=== PATIENT | male | born 1945 | race Caucasian/White ===

== ENCOUNTER 2021-08-11 17:51 | Inpatient (IN) | payer MEDICARE, BC ==
[2021-08-11 18:08] LABS: Absolute Neutrophil Ct (ANC) 2.24 (1.4-6.9); BASOPHIL % 0.3 % (0.0-0.4); Basophil (Absolute #) 0.01 (0-0.4); Eosinophil % 6.5 % (0.00-5.0); Eosinophil (Absolute #) 0.21 (0-0.5); Hematocrit 27.8 % (42-50); Hemoglobin 9.2 gm/dl (12.5-18.0); Lymphocyte (Absolute #) 0.36 (1.0-4.6); Lymphocytes % 11.1 % (24.0-44.0); Mean Cell Volume 83.7 fl (78-100); Mean Corpuscular Hemoglobin 27.7 pg (26-32); Mean Corpuscular Hgb Concent. 33.1 g/dl (32-36); Mean Platelet Volume 9.5 fl (7.5-11.0); Monocyte (Absolute #) 0.43 (0.0-1.3); Monocytes % 13.2 % (0.0-12.0); Neutrophil % 68.9 % (36.0-66.0); Platelet Count 122 K/mm3 (150-450); Red Blood Count 3.32 M/mm3 (4.1-5.6); Red Cell Distribution Width 15.9 % (11.5-14.0); White Blood Count 3.3 K/mm3 (4.0-10.5)
[2021-08-11 18:20] LABS: ALBUMIN 3.5 g/dL (3.5-5.0); ALKALINE PHOSPHATASE 157 U/L (38-126); ANION GAP 12.5 MEQ/L (5-15); BLOOD UREA NITROGEN 13 mg/dL (9-20); CHLORIDE 84 mmol/L (98-107); Calcium 8.9 mg/dL (8.4-10.2); Carbon Dioxide 23 mmol/L (22-30); Creatinine 1 0.47 mg/dL (0.66-1.25); EST GLOMERULAR FILTRATION RATE > 60.0 ML/MIN; Glucose 109 mg/dL (74-106); Potassium 4.6 mmol/L (3.5-5.1); SGOT/AST 29 U/L (17-59); SGPT/ALT 22 U/L (0-50); Total Protein 6.8 g/dL (6.3-8.2)
--- NOTE | 2021-08-11 18:31 | ERPHSYRPT ---
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 Per patient/ he has been having increased weakness fatigue and tiredness, decreased oral intake and decreased level of activity from his usual for 1 week. No fever or chills reported. Patient is chronically hypothermic with temperature normally around 95 and today was 92. Patient also has a left tib-fib surgery almost a month ago and currently on vancomycin infusion through PICC line. Also has left anterior knee superficial skin tear. Not a good historian and history is limited. Timing/Duration: week(s), constant, gradual onset, worse Severity: moderate Modifying Factors: Improves With: nothing Associated Symptoms: loss of appetite, malaise, weakness, No vomiting, No abdominal pain, No shortness of breath, No cough, No chills, No chest pain, No fever, No syncope Allergies/Adverse Reactions: codeine Allergy (Verified 08/11/21 18:21) Home Medications: Amlodipine Besylate 5 mg [Norvasc 5 mg] 5 mg PO DAILY 08/11/21 [History] Atorvastatin Calcium [Lipitor] 10 mg PO DAILY 08/11/21 [History] Baclofen 40 mg PO QID 08/11/21 [History] Nicotine Polacrilex [Nicotine Lozenge] 4 mg BC UD 08/11/21 [History] Omeprazole 20 mg PO DAILY 08/11/21 [History] Warfarin Sodium 1 mg [Coumadin 1 MG] 2.5 mg PO DAILY 08/11/21 [History] Travel Risk - International Travel Have you traveled outside of the country in past 3 weeks: No - Coronavirus Screening Are you exhibiting any of the following symptoms?: No Close contact with a COVID-19 positive Pt in past 14-21 Days: No - Vaccine Status Have you recieved a Covid-19 vaccination: Yes Network Analyst: Moderna - Vaccination Dates Date of 2cond Vaccination (if applicable): 01/2021 - Review of Systems Constitutional: Fatigue, Weakness Eyes: No Symptoms Ears, Nose, & Throat: No Symptoms Respiratory: No Symptoms Cardiac: No Symptoms Abdominal/Gastrointestinal: No Symptoms Genitourinary Symptoms: No Symptoms Musculoskeletal: Arthralgias, Deformity, Injury, Joint Redness, Joint Pain Skin: Skin Lesions Neurological: Paralysis, Parasthesia, Sensory Changes Psychological: No Symptoms Hematologic/Lymphatic: No Symptoms Immunological/Allergic: No Symptoms - Past Medical History Pertinent Past Medical History: Yes Cardiac History: High Cholesterol, Hypertension Musculoskeletal History: Fractures GI Medical History: GERD - Past Surgical History Past Surgical History: Yes Musculoskeletal: Orthopedic Surgery Other Surgical History: parapalegic - Social History Smoking Status: Never smoker Exposure to second hand smoke: No Drug Use: none Patient Lives Alone: No - Nursing Vital Signs Nursing Vital Signs: Initial Vital Signs Pulse Rate 55 L 08/11/21 17:53 Blood Pressure 131/66 08/11/21 17:53 O2 Sat by Pulse Oximetry 98 08/11/21 17:53 Pain Scale Pain Intensity 0 - Physical Exam General Appearance: no apparent distress, alert Eye Exam: PERRL/EOMI, eyes nml inspection Ears, Nose, Throat Exam: normal ENT inspection, TMs normal, pharynx normal Neck Exam: normal inspection, non-tender, supple Respiratory Exam: diminished breath sounds, rhonchi, wheezing Cardiovascular Exam: normal heart sounds, bradycardia Gastrointestinal/Abdomen Exam: soft, normal bowel sounds, No tenderness Back Exam: rash, other (Multiple skin rashes/wounds/pressure ulcers.) Extremity Exam: pelvis stable, swelling (Bilateral lower extremity swelling. Skin lesion left carpio and knee. 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 nml as tested, normal mood/affect Skin Exam: rash SpO2 Interpretation: normal SpO2: 98 O2 Delivery: Room Air Ordered Tests: Active Orders 24 hr Category Date Time Status Linux Systems Administrator STAT Care 08/11/21 18:09 Active EKG-ER Only STAT Care 08/11/21 18:09 Active IV Insertion STAT Care 08/11/21 18:09 Active CHEST 1 VIEW (PORTABLE) Stat Exams 08/11/21 18:11 Taken BLOOD CULTURE Stat Lab 08/11/21 17:50 Received BMP Stat Lab 08/11/21 23:55 Ordered BNP [NT PRO BNP] Stat Lab 08/11/21 18:10 Completed CBC W DIFF Stat Lab 08/11/21 18:00 Completed CMP Stat Lab 08/11/21 18:00 Completed CULTURE,URINE Stat Lab 08/11/21 18:20 Received MAG [MAGNESIUM] Stat Lab 08/11/21 18:11 Completed PROTIME WITH INR Stat Lab 08/11/21 19:00 Completed Sodium, Urine Stat Lab 08/11/21 18:20 Ordered TROPONIN Q3H Lab 08/11/21 18:15 Completed TROPONIN Q3H Lab 08/11/21 21:15 Ordered TSH [TSH, 3RD Generation] Stat Lab 08/11/21 18:31 Completed UA W/RFX UR CULTURE Stat Lab 08/11/21 18:20 Completed Uric Acid Stat Lab 08/11/21 18:31 Completed Medication Summary Generic Name Dose Route Start Last Admin Trade Name Freq PRN Reason Stop Dose Admin Magnesium Sulfate/Dextrose 100 mls @ 100 mls/hr 08/11/21 20:00 08/11/21 19:55 Magnesium 1 Gm / 100 Ml D5w IV 08/11/21 21:59 100 mls/hr Q1H MAGUI Administration Levofloxacin/Dextrose 750 mg in 150 mls @ 100 mls/hr 08/11/21 20:08 Levofloxacin 750mg/150ml D5w IV 08/11/21 21:37 STAT STA Sodium Chloride 500 mls @ 25 mls/hr 08/11/21 20:15 Sodium Chloride 3% Hypertonic IV 09/10/21 20:14 .Q20H MAGUI Lab/Rad Data: Laboratory Result Diagrams 08/11/21 18:00 08/11/21 18:00 Laboratory Results 08/11/21 08/11/21 08/11/21 Range/Units 19:00 18:31 18:20 WBC (4.0-10.5) K/mm3 RBC (4.1-5.6) M/mm3 Hgb (12.5-18.0) gm/dl Hct (42-50) % MCV (78-100) fl MCH (26-32) pg MCHC (32-36) g/dl RDW (11.5-14.0) % Plt Count (150-450) K/mm3 MPV (7.5-11.0) fl Gran % (36.0-66.0) % Eos # (Auto) (0-0.5) Absolute Lymphs (auto) (1.0-4.6) Absolute Monos (auto) (0.0-1.3) Lymphocytes % (24.0-44.0) % Monocytes % (0.0-12.0) % Eosinophils % (0.00-5.0) % Basophils % (0.0-0.4) % Absolute Granulocytes (1.4-6.9) Basophils # (0-0.4) PT 35.8 H (9.4-12.5) SECONDS INR 3.03 H (0.8-3.0) Sodium (137-145) mmol/L Potassium (3.5-5.1) mmol/L Chloride (98-107) mmol/L Carbon Dioxide (22-30) mmol/L Anion Gap (5-15) MEQ/L BUN (9-20) mg/dL Creatinine (0.66-1.25) mg/dL Estimated GFR ML/MIN Glucose (74-106) mg/dL Uric Acid 2.4 L (3.5-7.2) mg/dL Calcium (8.4-10.2) mg/dL Magnesium (1.6-2.3) mg/dL Total Bilirubin (0.2-1.3) mg/dL AST (17-59) U/L ALT (0-50) U/L Alkaline Phosphatase (38-126) U/L Troponin I (0.000-0.034) ng/mL NT-Pro-B Natriuret Pep (0-900) pg/mL Serum Total Protein (6.3-8.2) g/dL Albumin (3.5-5.0) g/dL TSH 3rd Generation 3.600 (0.47-4.68) mIU/L Urine Color YELLOW (YELLOW) Urine Appearance CLOUDY (CLEAR) Urine pH 7.0 (5-6) Ur Specific [place] 1.009 (1.005-1.025) Urine Protein NEGATIVE (Negative) Urine Ketones NEGATIVE (NEGATIVE) Urine Blood NEGATIVE (0-5) Diony/ul Urine Nitrite NEGATIVE (NEGATIVE) Urine Bilirubin NEGATIVE (NEGATIVE) Urine Urobilinogen NEGATIVE (0-1) mg/dL Ur Leukocyte Esterase LARGE (NEGATIVE) Urine WBC (Auto) 51-100 (0-5) /HPF Urine RBC (Auto) 6-10 (0-2) /HPF Urine Bacteria (Auto) MODERATE (NEGATIVE) /HPF Urine Mucus (Auto) SLIGHT (NEGATIVE) /HPF Urine Culture Reflexed YES (NO) Urine Glucose NEGATIVE (NEGATIVE) mg/dL Slides for Path Review 08/11/21 08/11/21 08/11/21 Range/Units 18:15 18:11 18:10 WBC (4.0-10.5) K/mm3 RBC (4.1-5.6) M/mm3 Hgb (12.5-18.0) gm/dl Hct (42-50) % MCV (78-100) fl MCH (26-32) pg MCHC (32-36) g/dl RDW (11.5-14.0) % Plt Count (150-450) K/mm3 MPV (7.5-11.0) fl Gran % (36.0-66.0) % Eos # (Auto) (0-0.5) Absolute Lymphs (auto) (1.0-4.6) Absolute Monos (auto) (0.0-1.3) Lymphocytes % (24.0-44.0) % Monocytes % (0.0-12.0) % Eosinophils % (0.00-5.0) % Basophils % (0.0-0.4) % Absolute Granulocytes (1.4-6.9) Basophils # (0-0.4) PT (9.4-12.5) SECONDS INR (0.8-3.0) Sodium (137-145) mmol/L Potassium (3.5-5.1) mmol/L Chloride (98-107) mmol/L Carbon Dioxide (22-30) mmol/L Anion Gap (5-15) MEQ/L BUN (9-20) mg/dL Creatinine (0.66-1.25) mg/dL Estimated GFR ML/MIN Glucose (74-106) mg/dL Uric Acid (3.5-7.2) mg/dL Calcium (8.4-10.2) mg/dL Magnesium 1.4 L (1.6-2.3) mg/dL Total Bilirubin (0.2-1.3) mg/dL AST (17-59) U/L ALT (0-50) U/L Alkaline Phosphatase (38-126) U/L Troponin I < 0.012 (0.000-0.034) ng/mL NT-Pro-B Natriuret Pep 355 (0-900) pg/mL Serum Total Protein (6.3-8.2) g/dL Albumin (3.5-5.0) g/dL TSH 3rd Generation (0.47-4.68) mIU/L Urine Color (YELLOW) Urine Appearance (CLEAR) Urine pH (5-6) Ur Specific [place] (1.005-1.025) Urine Protein (Negative) Urine Ketones (NEGATIVE) Urine Blood (0-5) Diony/ul Urine Nitrite (NEGATIVE) Urine Bilirubin (NEGATIVE) Urine Urobilinogen (0-1) mg/dL Ur Leukocyte Esterase (NEGATIVE) Urine WBC (Auto) (0-5) /HPF Urine RBC (Auto) (0-2) /HPF Urine Bacteria (Auto) (NEGATIVE) /HPF Urine Mucus (Auto) (NEGATIVE) /HPF Urine Culture Reflexed (NO) Urine Glucose (NEGATIVE) mg/dL Slides for Path Review 08/11/21 08/11/21 Range/Units 18:00 18:00 WBC 3.3 L (4.0-10.5) K/mm3 RBC 3.32 L (4.1-5.6) M/mm3 Hgb 9.2 L (12.5-18.0) gm/dl Hct 27.8 L (42-50) % MCV 83.7 (78-100) fl MCH 27.7 (26-32) pg MCHC 33.1 (32-36) g/dl RDW 15.9 H (11.5-14.0) % Plt Count 122 L (150-450) K/mm3 MPV 9.5 (7.5-11.0) fl Gran % 68.9 H (36.0-66.0) % Eos # (Auto) 0.21 (0-0.5) Absolute Lymphs (auto) 0.36 L (1.0-4.6) Absolute Monos (auto) 0.43 (0.0-1.3) Lymphocytes % 11.1 L (24.0-44.0) % Monocytes % 13.2 H (0.0-12.0) % Eosinophils % 6.5 H (0.00-5.0) % Basophils % 0.3 (0.0-0.4) % Absolute Granulocytes 2.24 (1.4-6.9) Basophils # 0.01 (0-0.4) PT (9.4-12.5) SECONDS INR (0.8-3.0) Sodium 115 L* (137-145) mmol/L Potassium 4.6 (3.5-5.1) mmol/L Chloride 84 L (98-107) mmol/L Carbon Dioxide 23 (22-30) mmol/L Anion Gap 12.5 (5-15) MEQ/L BUN 13 (9-20) mg/dL Creatinine 0.47 L (0.66-1.25) mg/dL Estimated GFR > 60.0 ML/MIN Glucose 109 H (74-106) mg/dL Uric Acid (3.5-7.2) mg/dL Calcium 8.9 (8.4-10.2) mg/dL Magnesium (1.6-2.3) mg/dL Total Bilirubin 0.40 (0.2-1.3) mg/dL AST 29 (17-59) U/L ALT 22 (0-50) U/L Alkaline Phosphatase 157 H (38-126) U/L Troponin I (0.000-0.034) ng/mL NT-Pro-B Natriuret Pep (0-900) pg/mL Serum Total Protein 6.8 (6.3-8.2) g/dL Albumin 3.5 (3.5-5.0) g/dL TSH 3rd Generation (0.47-4.68) mIU/L Urine Color (YELLOW) Urine Appearance (CLEAR) Urine pH (5-6) Ur Specific [place] (1.005-1.025) Urine Protein (Negative) Urine Ketones (NEGATIVE) Urine Blood (0-5) Diony/ul Urine Nitrite (NEGATIVE) Urine Bilirubin (NEGATIVE) Urine Urobilinogen (0-1) mg/dL Ur Leukocyte Esterase (NEGATIVE) Urine WBC (Auto) (0-5) /HPF Urine RBC (Auto) (0-2) /HPF Urine Bacteria (Auto) (NEGATIVE) /HPF Urine Mucus (Auto) (NEGATIVE) /HPF Urine Culture Reflexed (NO) Urine Glucose (NEGATIVE) mg/dL Slides for Path Review YES - Progress Progress: unchanged Progress Note: 08/11/21 20:27 35 years old is evaluated in the ER for hyponatremia. Recheck sodium is 115 and also has mildly low magnesium. He is given IV magnesium replacement. Chest x- ray showed right-sided infiltrative process and given a dose of Levaquin. Does have UTI which will be covered with Levaquin. There is low white count and platelets. Therapeutic INR. Patient receives vancomycin outpatient which will continue. Discussed with Dr. Stafford, recommended fluid restriction and starting 3% normal saline at a rate of 25 mL/h and recheck sodium in 4 hours. Patient is accepted for admission. Will see patient in: hospital (full admit) Counseled pt/family regarding: lab results, diagnosis, rad results - Departure Departure Disposition: In-patient Admission Clinical Impression: Hyponatremia, Hypomagnesemia, Acute UTI Pneumonia Qualifiers: Pneumonia type: due to unspecified organism Laterality: unspecified laterality Lung location: unspecified part of lung Qualified Code(s): J18.9 - Pneumonia, unspecified organism Condition: Fair Critical Care Time: Yes Critical Care Time(excluding separately billable procedures): Critical 30-74 mins Referrals: MARYA AYALA [Primary Care Provider] -
[2021-08-11 18:32] LABS: SODIUM 115 mmol/L (137-145)
[2021-08-11 18:57] LABS: Appearance CLOUDY (CLEAR); Bacteria MODERATE /HPF (NEGATIVE); Bilirubin NEGATIVE (NEGATIVE); Blood NEGATIVE Ery/ul (0-5); Glucose NEGATIVE (NEGATIVE); Ketones NEGATIVE (NEGATIVE); Leukocyte Esterase LARGE (NEGATIVE); Mucus SLIGHT /HPF (NEGATIVE); Nitrite NEGATIVE (NEGATIVE); Protein,Urine Dip NEGATIVE (Negative); Specific Gravity 1.009 (1.005-1.025); Urobilinogen NEGATIVE mg/dL (0-1); WBC 51-100 /HPF (0-5)
[2021-08-11 19:15] LABS: INR 3.03 (0.8-3.0); PROTIME 35.8 SECONDS (9.4-12.5)
[2021-08-11 19:49] LABS: TSH, 3RD Generation 3.6 mIU/L (0.47-4.68); Uric Acid 2.4 mg/dL (3.5-7.2)
[2021-08-11] MEDS ORDERED: Magnesium 1 Gm / 100 Ml D5W*** 100 ML IV ONE ×2 (19:53→20:19)
[2021-08-11] MEDS: Magnesium 1 Gm / 100 Ml D5W*** 100 ML IV SCH ×2 (19:55→20:41)
[2021-08-11] MEDS ORDERED: LEVOFLOXACIN 750MG/150ML D5W 750 MG/150 ML BAG IV STA (20:08)
[2021-08-11 20:14] LABS: Slide Review 1 YES
[2021-08-11] MEDS ORDERED: LEVOFLOXACIN 750MG/150ML D5W 750 MG/150 ML BAG IV ONE (21:12)
--- NOTE | 2021-08-11 21:44 | XRAY ---
Indication: Confusion. Comparison: None Portable chest is slightly rotated and right costophrenic angle not completely included limits exam. Mild diffuse right lung and left base interstitial alveolar opacities with tiny left effusion. Heart not enlarged with right PICC line. Bony thorax intact with mild osteopenia and degenerative changes.
[2021-08-11] MEDS ORDERED: DUONEB 0.5-3 MG/3 ml Neb IH PRN (23:15)
[2021-08-11] MEDS ORDERED: Zofran 4 MG/2 ML VIAL IV PRN (23:15)
[2021-08-11] MEDS ORDERED: MORPHINE SULFATE 2 MG INJ IV PRN (23:15)
[2021-08-11] MEDS ORDERED: TYLENOL 325 MG PO PRN (23:15)
[2021-08-12 00:26] LABS: ANION GAP 12.4 MEQ/L (5-15); BLOOD UREA NITROGEN 12 mg/dL (9-20); CHLORIDE 85 mmol/L (98-107); Calcium 8.6 mg/dL (8.4-10.2); Carbon Dioxide 24 mmol/L (22-30); Creatinine 1 0.45 mg/dL (0.66-1.25); EST GLOMERULAR FILTRATION RATE > 60.0 ML/MIN; Glucose 103 mg/dL (74-106); Potassium 4.7 mmol/L (3.5-5.1)
[2021-08-12 00:33] LABS: SODIUM 117 mmol/L (137-145)
[2021-08-12] MEDS ORDERED: LIORESAL 10 MG ONE (02:03)
[2021-08-12] MEDS: LIORESAL 10 MG PO SCH ×5 (02:13→21:44)
[2021-08-12] MEDS: Protonix 40MG Tablet PO SCH ×3 (02:16→21:44)
[2021-08-12] MEDS: MOTRIN 200 MG PO PRN ×2 (02:17→11:39)
[2021-08-12] MEDS ORDERED: NON-FORMULARY BULK ITEM PO ONE (02:37)
[2021-08-12 07:39] LABS: Hematocrit 25.9 % (42-50); Hemoglobin 8.4 gm/dl (12.5-18.0); Mean Cell Volume 84.9 fl (78-100); Mean Corpuscular Hemoglobin 27.5 pg (26-32); Mean Corpuscular Hgb Concent. 32.4 g/dl (32-36); Mean Platelet Volume 9.8 fl (7.5-11.0); Platelet Count 127 K/mm3 (150-450); Red Blood Count 3.05 M/mm3 (4.1-5.6); White Blood Count 3.4 K/mm3 (4.0-10.5)
[2021-08-12 07:44] LABS: INR 3.03 (0.8-3.0); PROTIME 35.8 SECONDS (9.4-12.5)
[2021-08-12 07:47] LABS: ALBUMIN 3.3 g/dL (3.5-5.0); ALKALINE PHOSPHATASE 160 U/L (38-126); ANION GAP 11.5 MEQ/L (5-15); BLOOD UREA NITROGEN 12 mg/dL (9-20); CHLORIDE 88 mmol/L (98-107); Calcium 8.7 mg/dL (8.4-10.2); Carbon Dioxide 24 mmol/L (22-30); Creatinine 1 0.42 mg/dL (0.66-1.25); EST GLOMERULAR FILTRATION RATE > 60.0 ML/MIN; Glucose 81 mg/dL (74-106); Potassium 4.6 mmol/L (3.5-5.1); SGOT/AST 29 U/L (17-59); SGPT/ALT 21 U/L (0-50); Total Protein 6.5 g/dL (6.3-8.2)
[2021-08-12 08:04] LABS: SODIUM 119 mmol/L (137-145)
[2021-08-12 08:56] LABS: Eosinophil 2 % (0.00-3.0); Lymphocytes 15 % (24-44); Monocyte 6 % (0.0-12.0); Neutrophils 77 % (36.-66.); Total Cells Counted 100
[2021-08-12 08:57] LABS: Platelet Estimate NORMAL (NORMAL)
[2021-08-12] MEDS ORDERED: PROTONIX 40 MG IV IV SCH (10:00)
[2021-08-12] MEDS ORDERED: LIORESAL 10 MG PO SCH (10:00)
[2021-08-12] MEDS ORDERED: NICOTINE POLACRILEX 4 MG BC SCH (12:15)
[2021-08-12] MEDS: Sodium Chloride 0.9% 1000 ML 1,000 ML IV SCH (13:29)
[2021-08-12] MEDS: NORVASC 5 MG PO SCH (13:39)
[2021-08-12] MEDS: Magnesium 1 Gm / 100 Ml D5W*** 100 ML IV SCH ×2 (15:16→15:52)
[2021-08-12] MEDS ORDERED: Coumadin 1 MG PO SCH (18:00)
--- NOTE | 2021-08-12 20:07 | PCM.HP ---
History of Present Illness - Chief Complaint Chief Complaint: HYyponatremia, hypomagnesemia, UTI, Pneumonia Date: 08/12/21 History of Present Illness: is a 75 year old male. Pt. called by pcp and told a critical low sodium and prompted to ER, pt. is without complaints upon arrival to ER sodium noted to be 115, notes he drinks 4 16 ounce bottles of water daily but minimally drinks other fluids, she is not aware of any prior problems with sodium. - Review of Systems Constitutional: No Fever, No Chills Eyes: No Symptoms Ears, Nose, & Throat: No Symptoms Respiratory: No Cough, No Short Of Breath Cardiac: No Chest Pain, No Edema, No Syncope Abdominal/Gastrointestinal: No Abdominal Pain, No Nausea, No Vomiting, No Diarrhea Genitourinary Symptoms: No Dysuria Musculoskeletal: No Back Pain, No Neck Pain Skin: No Rash Neurological: No Dizziness, No Focal Weakness, No Sensory Changes Psychological: No Symptoms Endocrine: No Symptoms Hematologic/Lymphatic: No Symptoms Immunological/Allergic: No Symptoms Medications & Allergies Home Medications: Home Medication List Amlodipine Besylate 5 mg [Norvasc 5 mg] 5 mg PO DAILY 08/11/21 [History Confirmed 08/11/21] Atorvastatin Calcium [Lipitor] 10 mg PO DAILY 08/11/21 [History Confirmed ] Baclofen 40 mg PO QID 08/11/21 [History Confirmed 08/11/21] Nicotine Polacrilex [Nicotine Lozenge] 4 mg BC UD 08/11/21 [History Confirmed 08/11/21] Omeprazole 20 mg PO HS 08/11/21 [History Confirmed 08/12/21] Warfarin Sodium 1 mg [Coumadin 1 MG] 3.5 mg PO DAILY 08/11/21 [History Confirmed 08/12/21] Ibuprofen 200 mg [Motrin 200 mg] 200 mg PO Q6H PRN 08/12/21 [History Confirmed 08/12/21] L.acidoph,Paracasei, B.lactis [Probiotic] 1 each PO HS 08/12/21 [History Confirmed 08/12/21] Warfarin Sodium 5 mg [Coumadin 5 MG] 4 mg PO DAILY 08/12/21 [History Confirmed 08/12/21] Allergies/Adverse Reactions: Allergies Allergy/AdvReac Type Severity Reaction Status Date / Time codeine Allergy Verified 08/11/21 18:21 - Past Medical History Past Medical History: Yes Cardiac History: High Cholesterol, Hypertension Musculoskelatal History: Fractures GI Medical History: GERD - Past Surgical History Past Surgical History: Yes Neuro Surgical History: No Pertinent History Cardiac History: No Pertinent History Respiratory Surgery: No Pertinent History GI Surgical History: Bowel Surgery Genitourinary Surgical Hx: Kidney Surgery, Other Musculskeletal Surgical Hx: Orthopedic Surgery Other Surgical History: parapalegic, pt has urostemy and colostomy - Social History Smoking Status: Current some day smoker How long have you smoked: 2 yrs Exposure to second hand smoke: Yes Alcohol: None Drug Use: none - Physical Exam Vital Signs: Vital Signs - 24 hr Temp Pulse Resp BP Pulse Ox 08/12/21 16:00 93.1 F 62 11 L 160/83 96 08/12/21 12:00 94.2 F 50 L 17 122/64 96 08/12/21 08:37 93 L 08/12/21 08:34 53 L 16 93 L 08/12/21 08:00 94.1 F 56 L 17 158/70 96 08/12/21 04:00 94 F 60 16 156/80 97 08/11/21 23:45 62 20 98 08/11/21 23:31 94 F 59 L 20 123/66 98 08/11/21 23:10 94 F 59 L 20 155/88 98 08/11/21 22:00 54 L 16 123/66 96 08/11/21 21:00 50 L 18 116/57 95 08/11/21 20:30 98 08/11/21 20:07 93.6 F 44 L 10 L 154/68 General Appearance: no apparent distress, alert Neurologic Exam: alert, cooperative, normal mood/affect Eye Exam: eyes nml inspection Ears, Nose, Throat Exam: normal ENT inspection, moist mucous membranes Neck Exam: normal inspection, No non-tender Respiratory Exam: normal breath sounds, lungs clear, No chest tenderness Cardiovascular Exam: regular rate/rhythm, normal heart sounds Gastrointestinal/Abdomen Exam: soft, normal bowel sounds, No tenderness, No distention, No mass Rectal Exam: deferred Back Exam: normal inspection Extremity Exam: paralysis, limited range of motion Skin Exam: normal color (abrasion and healing wounds from left lower leg fracture with repair in June 2021) Wound Assessment: Skin/Wound Assessment Wound/Incision Assessment Start: 08/12/21 00:28 Text: Status: Active Freq: Q6H Protocol: Document 08/12/21 14:00 AR (Rec: 08/12/21 14:36 AR [id number]) Wound/Incision Assessment Left Knee Wound Assessment Shift Assessment General Appearance Reddened Upper Buttock Wound Assessment Shift Assessment Wound Type Pressure Ulcer General Appearance Clean/Dry,Reddened Surrounding Tissue Bright Red Medial Back Wound Assessment Admission Comment Reddened area on upper middle back Wound Photo Photo Taken Yes Date: 08/12/21 Results - Labs Lab/Micro Results: Lab Results-Last 24 Hours 08/11/21 08/11/21 08/11/21 Range/Units 18:00 21:15 21:17 WBC (4.0-10.5) K/mm3 RBC (4.1-5.6) M/mm3 Hgb (12.5-18.0) gm/dl Hct (42-50) % MCV (78-100) fl MCH (26-32) pg MCHC (32-36) g/dl RDW (11.5-14.0) % Plt Count (150-450) K/mm3 MPV (7.5-11.0) fl Segmented Neutrophils (36.-66.) % Lymphocytes (Manual) (24-44) % Monocytes (Manual) (0.0-12.0) % Eosinophils (Manual) (0.00-3.0) % Platelet Estimate (NORMAL) RBC Morphology PT (9.4-12.5) SECONDS INR (0.8-3.0) Sodium (137-145) mmol/L Potassium (3.5-5.1) mmol/L Chloride (98-107) mmol/L Carbon Dioxide (22-30) mmol/L Anion Gap (5-15) MEQ/L BUN (9-20) mg/dL Creatinine (0.66-1.25) mg/dL Estimated GFR ML/MIN Glucose (74-106) mg/dL POC Glucometer (74 to 106) mg/dL Hemoglobin A1c (4.5-6.0) % Calcium (8.4-10.2) mg/dL Magnesium (1.6-2.3) mg/dL Total Bilirubin (0.2-1.3) mg/dL AST (17-59) U/L ALT (0-50) U/L Alkaline Phosphatase (38-126) U/L Troponin I < 0.012 (0.000-0.034) ng/mL Serum Total Protein (6.3-8.2) g/dL Albumin (3.5-5.0) g/dL SARS-CoV-2 (PCR) NEGATIVE (NEGATIVE) Slides for Path Review YES 08/11/21 08/12/21 08/12/21 Range/Units 23:55 06:20 06:20 WBC 3.4 L (4.0-10.5) K/mm3 RBC 3.05 L (4.1-5.6) M/mm3 Hgb 8.4 L (12.5-18.0) gm/dl Hct 25.9 L (42-50) % MCV 84.9 (78-100) fl MCH 27.5 (26-32) pg MCHC 32.4 (32-36) g/dl RDW 16.0 H (11.5-14.0) % Plt Count 127 L (150-450) K/mm3 MPV 9.8 (7.5-11.0) fl Segmented Neutrophils 77 H (36.-66.) % Lymphocytes (Manual) 15 L (24-44) % Monocytes (Manual) 6 (0.0-12.0) % Eosinophils (Manual) 2 (0.00-3.0) % Platelet Estimate NORMAL (NORMAL) RBC Morphology NORMAL PT (9.4-12.5) SECONDS INR (0.8-3.0) Sodium 117 L* 119 L* (137-145) mmol/L Potassium 4.7 4.6 (3.5-5.1) mmol/L Chloride 85 L 88 L (98-107) mmol/L Carbon Dioxide 24 24 (22-30) mmol/L Anion Gap 12.4 11.5 (5-15) MEQ/L BUN 12 12 (9-20) mg/dL Creatinine 0.45 L 0.42 L (0.66-1.25) mg/dL Estimated GFR > 60.0 > 60.0 ML/MIN Glucose 103 81 (74-106) mg/dL POC Glucometer (74 to 106) mg/dL Hemoglobin A1c (4.5-6.0) % Calcium 8.6 8.7 (8.4-10.2) mg/dL Magnesium (1.6-2.3) mg/dL Total Bilirubin 0.30 (0.2-1.3) mg/dL AST 29 (17-59) U/L ALT 21 (0-50) U/L Alkaline Phosphatase 160 H (38-126) U/L Troponin I (0.000-0.034) ng/mL Serum Total Protein 6.5 (6.3-8.2) g/dL Albumin 3.3 L (3.5-5.0) g/dL SARS-CoV-2 (PCR) (NEGATIVE) Slides for Path Review 08/12/21 08/12/21 08/12/21 Range/Units 06:20 06:20 06:20 WBC (4.0-10.5) K/mm3 RBC (4.1-5.6) M/mm3 Hgb (12.5-18.0) gm/dl Hct (42-50) % MCV (78-100) fl MCH (26-32) pg MCHC (32-36) g/dl RDW (11.5-14.0) % Plt Count (150-450) K/mm3 MPV (7.5-11.0) fl Segmented Neutrophils (36.-66.) % Lymphocytes (Manual) (24-44) % Monocytes (Manual) (0.0-12.0) % Eosinophils (Manual) (0.00-3.0) % Platelet Estimate (NORMAL) RBC Morphology PT 35.8 H (9.4-12.5) SECONDS INR 3.03 H (0.8-3.0) Sodium (137-145) mmol/L Potassium (3.5-5.1) mmol/L Chloride (98-107) mmol/L Carbon Dioxide (22-30) mmol/L Anion Gap (5-15) MEQ/L BUN (9-20) mg/dL Creatinine (0.66-1.25) mg/dL Estimated GFR ML/MIN Glucose (74-106) mg/dL POC Glucometer (74 to 106) mg/dL Hemoglobin A1c 5.28 (4.5-6.0) % Calcium (8.4-10.2) mg/dL Magnesium 1.8 (1.6-2.3) mg/dL Total Bilirubin (0.2-1.3) mg/dL AST (17-59) U/L ALT (0-50) U/L Alkaline Phosphatase (38-126) U/L Troponin I (0.000-0.034) ng/mL Serum Total Protein (6.3-8.2) g/dL Albumin (3.5-5.0) g/dL SARS-CoV-2 (PCR) (NEGATIVE) Slides for Path Review 08/12/21 08/12/21 08/12/21 Range/Units 07:16 11:58 16:44 WBC (4.0-10.5) K/mm3 RBC (4.1-5.6) M/mm3 Hgb (12.5-18.0) gm/dl Hct (42-50) % MCV (78-100) fl MCH (26-32) pg MCHC (32-36) g/dl RDW (11.5-14.0) % Plt Count (150-450) K/mm3 MPV (7.5-11.0) fl Segmented Neutrophils (36.-66.) % Lymphocytes (Manual) (24-44) % Monocytes (Manual) (0.0-12.0) % Eosinophils (Manual) (0.00-3.0) % Platelet Estimate (NORMAL) RBC Morphology PT (9.4-12.5) SECONDS INR (0.8-3.0) Sodium (137-145) mmol/L Potassium (3.5-5.1) mmol/L Chloride (98-107) mmol/L Carbon Dioxide (22-30) mmol/L Anion Gap (5-15) MEQ/L BUN (9-20) mg/dL Creatinine (0.66-1.25) mg/dL Estimated GFR ML/MIN Glucose (74-106) mg/dL POC Glucometer 92 125 H 131 H (74 to 106) mg/dL Hemoglobin A1c (4.5-6.0) % Calcium (8.4-10.2) mg/dL Magnesium (1.6-2.3) mg/dL Total Bilirubin (0.2-1.3) mg/dL AST (17-59) U/L ALT (0-50) U/L Alkaline Phosphatase (38-126) U/L Troponin I (0.000-0.034) ng/mL Serum Total Protein (6.3-8.2) g/dL Albumin (3.5-5.0) g/dL SARS-CoV-2 (PCR) (NEGATIVE) Slides for Path Review 08/12/21 Range/Units 16:44 WBC (4.0-10.5) K/mm3 RBC (4.1-5.6) M/mm3 Hgb (12.5-18.0) gm/dl Hct (42-50) % MCV (78-100) fl MCH (26-32) pg MCHC (32-36) g/dl RDW (11.5-14.0) % Plt Count (150-450) K/mm3 MPV (7.5-11.0) fl Segmented Neutrophils (36.-66.) % Lymphocytes (Manual) (24-44) % Monocytes (Manual) (0.0-12.0) % Eosinophils (Manual) (0.00-3.0) % Platelet Estimate (NORMAL) RBC Morphology PT (9.4-12.5) SECONDS INR (0.8-3.0) Sodium (137-145) mmol/L Potassium (3.5-5.1) mmol/L Chloride (98-107) mmol/L Carbon Dioxide (22-30) mmol/L Anion Gap (5-15) MEQ/L BUN (9-20) mg/dL Creatinine (0.66-1.25) mg/dL Estimated GFR ML/MIN Glucose (74-106) mg/dL POC Glucometer 131 H (74 to 106) mg/dL Hemoglobin A1c (4.5-6.0) % Calcium (8.4-10.2) mg/dL Magnesium (1.6-2.3) mg/dL Total Bilirubin (0.2-1.3) mg/dL AST (17-59) U/L ALT (0-50) U/L Alkaline Phosphatase (38-126) U/L Troponin I (0.000-0.034) ng/mL Serum Total Protein (6.3-8.2) g/dL Albumin (3.5-5.0) g/dL SARS-CoV-2 (PCR) (NEGATIVE) Slides for Path Review Microbiology 08/11/21 18:20 Urine Culture - Preliminary Catherized GRAM NEGATIVE ID AND SENSITIVITY PENDING Accuchecks Date 08/12/21 Date 08/12/21 Date 08/12/21 - Radiology Impressions Radiology Exams & Impressions: Radiology Procedures Category Date Time Status ABDOMEN AND PELVIS W/0 CONTRAS [CT] Routine Exams 08/12/21 11:45 Taken CHEST 1 VIEW (PORTABLE) Stat Exams 08/11/21 18:11 Completed CHEST WITHOUT CONTRAST [CT] Routine Exams 08/12/21 11:45 Taken - Other Procedures and Tests Respiratory Therapy 08/11/21 23:45 Respiratory Therapy Assessment DAILY Assessment/Plan (1) Pancytopenia Current Visit: Yes Status: Acute Assessment & Plan: Pt. with prior kidney cancer and nephrectomy, will obtain a CT of chest abd and pelvis without iv contrast. Code(s): D61.818 - OTHER PANCYTOPENIA (2) Hyponatremia Current Visit: Yes Status: Acute Assessment & Plan: treat with slow infusion of hypertonic saline Code(s): E87.1 - HYPO-OSMOLALITY AND HYPONATREMIA
--- NOTE | 2021-08-12 20:22 | XRAY ---
Indication: Pancytopenia. Multiple contiguous images obtained through the chest without contrast. Comparison: None Lungs demonstrates diffuse right lung ground glass airspace disease. Bilateral lower lobe subsegmental atelectasis. No large effusion. Heart is not enlarged with right arm PICC line. Aorta is minimally arteriosclerotic without aneurysm. Small subcarinal and left hilar calcified nodes. Small nonspecific mediastinal and bilateral hilar noncalcified nodes. Esophagus is moderately fluid distended throughout vision from gastroesophageal reflux. Small hiatal hernia. Bony thorax intact with mild osteopenia and mild degenerative changes throughout the spine. CT abdomen/pelvis reported separately. Impression: 1. Diffuse right lung ground glass airspace disease. 2. Fluid distended esophagus. Rule out gastroesophageal reflux. Incidental small hiatal hernia. 3. Bibasilar subsegmental atelectasis. 4. Calcified and noncalcified mediastinal/hilar lymph nodes presumed from old granulomatous disease. Comment: Preliminary interpretation made by [facility]. No critical discrepancy.
--- NOTE | 2021-08-12 20:28 | XRAY ---
Indication: Pancytopenia. Multiple contiguous axial images obtained through the abdomen and pelvis without contrast. Comparison: None CT chest reported separately. Stomach is distended with food/fluid. Noncontrasted stomach and bowel loops appear nonobstructed. There are bilateral periumbilical ostomies. Rectum demonstrates mild rectal impaction. There has been right nephrectomy and cystectomy. Gallbladder contracted without gallstones. No free fluid/air. Right nephrectomy bed demonstrates a 3.6 x 2.3 cm ill-defined soft tissue density (image 44) either postsurgical versus portion of pancreas. Recurrent tumor not completely excluded. There is also a 3.4 x 3.4 cm round preaortic soft tissue density (image 39), lymphadenopathy versus renal artery aneurysm. Remaining liver, pancreas, spleen, adrenal glands, left kidney, and left ureter are unremarkable for noncontrast exam. Mild scattered aortoiliac calcifications without aneurysm. Osseous structures intact with osteopenia and mild/moderate degenerative changes throughout the thoracolumbar spine and both hips. Impression: 1. Round preaortic soft tissue density either lymphadenopathy versus renal artery aneurysm. Ill-defined soft tissue density right nephrectomy bed either postsurgical versus portion of pancreas. Recurrent tumor not completely excluded. Also comparison studies recommended if available. 2. Rectal impaction. 3. Postsurgical changes and chronic bony findings. Comment: Preliminary interpretation made by [facility]. No critical discrepancy.
[2021-08-12] MEDS: Zocor 10MG PO SCH (21:43)
[2021-08-12] MEDS: Acidophilus TABLET PO SCH (21:43)
[2021-08-12] MEDS: LEVOFLOXACIN 750MG/150ML D5W 750 MG/150 ML BAG IV SCH (21:45)
[2021-08-12] MEDS: PATIENT OWN MEDICATION BC PRN (21:46)
[2021-08-12] MEDS ORDERED: NON-FORMULARY ITEM (L.Acidoph,Paracasei, B.Lactis [Probiotic] 1 EACH) PO SCH (22:00)
[2021-08-12] MEDS ORDERED: NON-FORMULARY ITEM (Omeprazole [Omeprazole] 20 MG) PO SCH (22:00)
[2021-08-13] MEDS: PATIENT OWN MEDICATION BC PRN ×7 (01:28→22:21)
[2021-08-13] MEDS: Sodium Chloride 0.9% 1000 ML 1,000 ML IV SCH ×2 (04:52→18:13)
[2021-08-13 05:54] LABS: Hematocrit 26.8 % (42-50); Hemoglobin 8.6 gm/dl (12.5-18.0); Mean Cell Volume 86.7 fl (78-100); Mean Corpuscular Hemoglobin 27.8 pg (26-32); Mean Corpuscular Hgb Concent. 32.1 g/dl (32-36); Mean Platelet Volume 10.4 fl (7.5-11.0); Platelet Count 131 K/mm3 (150-450); Red Blood Count 3.09 M/mm3 (4.1-5.6); Red Cell Distribution Width 16.7 % (11.5-14.0); White Blood Count 4.5 K/mm3 (4.0-10.5)
[2021-08-13 06:00] LABS: INR 2.64 (0.8-3.0); PROTIME 31.1 SECONDS (9.4-12.5)
[2021-08-13 06:07] LABS: ALBUMIN 3.2 g/dL (3.5-5.0); ALKALINE PHOSPHATASE 206 U/L (38-126); ANION GAP 11.5 MEQ/L (5-15); BLOOD UREA NITROGEN 14 mg/dL (9-20); CHLORIDE 97 mmol/L (98-107); Calcium 8.6 mg/dL (8.4-10.2); Carbon Dioxide 21 mmol/L (22-30); Creatinine 1 0.49 mg/dL (0.66-1.25); EST GLOMERULAR FILTRATION RATE > 60.0 ML/MIN; Glucose 94 mg/dL (74-106); Potassium 5.1 mmol/L (3.5-5.1); SGOT/AST 29 U/L (17-59); SGPT/ALT 19 U/L (0-50); SODIUM 125 mmol/L (137-145); Total Protein 6.3 g/dL (6.3-8.2)
[2021-08-13] MEDS: LIORESAL 10 MG PO SCH ×4 (08:33→22:20)
[2021-08-13] MEDS: NORVASC 5 MG PO SCH (08:33)
[2021-08-13] MEDS ORDERED: Coumadin 5 MG PO SCH (10:00)
[2021-08-13] MEDS ORDERED: NON-FORMULARY ITEM (Atorvastatin Calcium [Lipitor] 10 MG) PO SCH (10:00)
[2021-08-13] MEDS: Miralax Powder 17GM PACKET PO SCH (12:09)
[2021-08-13] MEDS: MOTRIN 200 MG PO PRN ×2 (12:10→22:20)
[2021-08-13] MEDS ORDERED: Coumadin 1 MG PO SCH (18:00)
[2021-08-13] MEDS: Zocor 10MG PO SCH (22:20)
[2021-08-13] MEDS: Protonix 40MG Tablet PO SCH (22:20)
[2021-08-13] MEDS: Acidophilus TABLET PO SCH (22:20)
[2021-08-13] MEDS: LEVOFLOXACIN 750MG/150ML D5W 750 MG/150 ML BAG IV SCH (22:22)
[2021-08-14] MEDS: PATIENT OWN MEDICATION BC PRN (05:26)
[2021-08-14 06:34] LABS: Hematocrit 27.3 % (42-50); Hemoglobin 8.5 gm/dl (12.5-18.0); Mean Cell Volume 89.5 fl (78-100); Mean Corpuscular Hemoglobin 27.9 pg (26-32); Mean Corpuscular Hgb Concent. 31.1 g/dl (32-36); Platelet Count 133 K/mm3 (150-450); Red Blood Count 3.05 M/mm3 (4.1-5.6); Red Cell Distribution Width 17.4 % (11.5-14.0); White Blood Count 5.5 K/mm3 (4.0-10.5)
[2021-08-14 06:55] LABS: INR 2.76 (0.8-3.0); PROTIME 32.6 SECONDS (9.4-12.5)
[2021-08-14 07:02] LABS: ALBUMIN 3.1 g/dL (3.5-5.0); ALKALINE PHOSPHATASE 172 U/L (38-126); ANION GAP 11.4 MEQ/L (5-15); BLOOD UREA NITROGEN 13 mg/dL (9-20); CHLORIDE 104 mmol/L (98-107); Calcium 8.9 mg/dL (8.4-10.2); Carbon Dioxide 25 mmol/L (22-30); EST GLOMERULAR FILTRATION RATE > 60.0 ML/MIN; Glucose 82 mg/dL (74-106); Potassium 4.8 mmol/L (3.5-5.1); SGOT/AST 25 U/L (17-59); SGPT/ALT 19 U/L (0-50); SODIUM 136 mmol/L (137-145); Total Protein 6.2 g/dL (6.3-8.2)
[2021-08-14] MEDS: LIORESAL 10 MG PO SCH ×2 (10:10→12:23)
[2021-08-14] MEDS: NORVASC 5 MG PO SCH (10:10)
[2021-08-14] MEDS: Miralax Powder 17GM PACKET PO SCH (12:23)
[2021-08-14 15:16] VITALS: BP 140/71; PULSE 78; O2SAT 95
--- NOTE | 2021-08-30 17:30 | PCM.DS ---
Discharge Summary Date of Admission: 08/11/21 23:10 Date of Discharge: 08/14/2021 Admitting Physician: VICTORIANO MEYERS Primary Care Provider: MARYA AYALA Allergies Allergies codeine Allergy (Verified 08/21/21 18:05) Hospital Summary - Hospital Course Hospital Course: Pt. admitted on 08/11 with marked hyponatremia, UTI, Pneumonia, generalized weak ness, pt. noted drinking upwards of 8 glasses of 8-12 ounces of water daily, he was judiciously increased his sodium by using 3% Saline and normal saline. Pt. sodium returned to near normal, UTI was treated with iv abx as well as the pneumonia. - Vitals & Intake/Output Vital Signs: Vital Signs Temperature 94.9 F 08/14/21 12:00 Pulse Rate 78 08/14/21 12:00 Respiratory Rate 16 08/14/21 12:00 Blood Pressure 140/71 08/14/21 12:00 O2 Sat by Pulse Oximetry 95 08/14/21 12:00 - Lab Result Diagrams: 08/14/21 04:50 08/14/21 04:50 Micro Results-Entire Visit: Microbiology 08/11/21 18:20 Blood Culture Gram Stain - Final Blood Not Reportable Blood Culture - Final NO GROWTH 08/11/21 17:50 Blood Culture Gram Stain - Final Blood Not Reportable Blood Culture - Final NO GROWTH 08/11/21 18:20 Urine Culture - Final Catherized Serratia Marcescens Marcella Castillo - Procedures and Test Procedures and Tests throughout Hospitalization: Therapy Orders & Screens 08/11/21 23:45 Respiratory Therapy Assessment DAILY Comment: Diagnosis: HYyponatremia, hypomagnesemia, UTI, Pneumonia 08/13/21 08:00 PT Eval & Treat ( Order) ONCE Reason for Eval:: WOUND CARE OF L LEG Diagnosis: HYyponatremia, hypomagnesemia, UTI, Pneumonia Discharge Exam General Appearance: no apparent distress Neurologic Exam: alert, cooperative Eye Exam: PERRL, eyes nml inspection Ears, Nose, Throat Exam: normal ENT inspection, pharynx normal, moist mucous membranes Neck Exam: normal inspection, non-tender, supple, full range of motion Respiratory Exam: normal breath sounds, lungs clear Cardiovascular Exam: regular rate/rhythm, normal heart sounds Gastrointestinal/Abdomen Exam: soft, normal bowel sounds, No tenderness, No distention Male Genitalia Exam: deferred Rectal Exam: deferred Back Exam: normal inspection Extremity Exam: paralysis (paralysis of bilateral legs and recent surgery on left tibia with aury placement for fracture.) Wound Assessment: Skin/Wound Assessment Wound/Incision Assessment Start: 08/12/21 00: 28 Text: Status: Active Freq: Q6H Protocol: Document 08/14/21 14:00 (Rec: 08/14/21 15:30 [id number]) Wound/Incision Assessment Left Knee Wound Assessment Shift Assessment General Appearance Reddened Comment cleaned and dressed by PT today Upper Buttock Wound Assessment Shift Assessment Wound Type Pressure Ulcer Medial Back Wound Assessment Shift Assessment Comment Reddened area on upper middle back Final Diagnosis/Problem List - Final Discharge Diagnosis/Problem (1) Pancytopenia Status: Acute Code(s): D61.818 - OTHER PANCYTOPENIA (2) Hyponatremia Status: Acute Code(s): E87.1 - HYPO-OSMOLALITY AND HYPONATREMIA (3) Acute UTI Status: Acute Code(s): N39.0 - URINARY TRACT INFECTION, SITE NOT SPECIFIED (4) Pneumonia Status: Acute Code(s): J18.9 - PNEUMONIA, UNSPECIFIED ORGANISM - Discharge Discharge Date: 08/14/21 Disposition: Home Health @ [place] State Condition: Stable Prescriptions: No Action Atorvastatin Calcium [Lipitor] 10 mg PO DAILY Warfarin Sodium 1 mg [Coumadin 1 MG] 3.5 mg PO DAILY Amlodipine Besylate 5 mg [Norvasc 5 mg] 5 mg PO DAILY Omeprazole 20 mg PO HS Baclofen 40 mg PO QID Nicotine Polacrilex [Nicotine Lozenge] 4 mg BC UD Warfarin Sodium 5 mg [Coumadin 5 MG] 4 mg PO DAILY L.acidoph,Paracasei, B.lactis [Probiotic] 1 each PO HS Ibuprofen 200 mg [Motrin 200 mg] 200 mg PO Q6H PRN PRN Reason: Pain Amoxicillin/Potassium Clav [Augmentin 875-125 Tablet] 875 mg PO BID 10 Days #20 tablet Azithromycin 250 mg PO DAILY 5 Days tablet Potassium Chloride 10 Meq Tab* [Klor Con 10 MEQ] 20 meq PO DAILY #30 tab Furosemide 20 mg [Lasix 20 mg] 20 mg PO DAILY #30 tablet Instructions: Hyponatremia (DC) Follow up with: MARYA AYALA [Primary Care Provider] - 08/24/21 11:45 am
== END 2021-08-14 16:50 | disposition home health service (06) | DRG 808 ==
LOC: ED 17:51 → MED SURG 23:10 → UNDOADMIN 23:10
PROVIDERS: ADMIT Family Medicine; ATTEND Family Medicine
DX: D61.818 Other pancytopenia (principal); G82.50 Quadriplegia, unspecified; J18.9 Pneumonia, unspecified organism; E87.1 Hypo-osmolality and hyponatremia; N39.0 Urinary tract infection, site not specified; E53.1 Pyridoxine deficiency; R53.1 Weakness; S81.012A Laceration without foreign body, left knee, initial encounter; Z79.899 Other long term (current) drug therapy; Z79.01 Long term (current) use of anticoagulants; I10 Essential (primary) hypertension; E78.00 Pure hypercholesterolemia, unspecified; E83.42 Hypomagnesemia; Z20.822 Contact with and (suspected) exposure to COVID-19
CPT/HCPCS: 36000; 36415; 71045; 71250; 74176; 80048; 80053; 81001; 82947; 83036; 83735; 83880; 83935; 84300; 84443; 84484; 84550; 85025; 85027; 85610; 87040; 87077; 87086; 87186; 93005; 93041; 94760; 96365; 96366; 96367; 97161; 99285; 99291; U0003; J1956; J3475; A9270-GY

== ENCOUNTER 2021-08-21 17:41 | Inpatient (IN) | payer MEDICARE, BC ==
--- NOTE | 2021-08-21 18:17 | ERPHSYRPT ---
- History of Present Illness Source: patient, EMS Exam Limitations: other (Poor historian/PE difficult due to quadriplegia) Patient Subjective Stated Complaint: pt here for increase sob for last 3 days, was recently dc for hospital , pt wears home o2 at night,home health care nurse came and sats where low and o2 applied Triage Nursing Assessment: pt alert, resp easy, skin w/d/p. 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 Pt is intermittantly on 2-4L O2 at home and has required it more frequently. Pt has no sensation below his nipple line. Timing/Duration: today Activities at Onset: rest Severity of Dyspnea-Max: moderate Severity of Dyspnea-Current: mild Possible Cause: occasional episodes Modifying Factors: Improves With: nothing Associated Symptoms: denies symptoms Allergies/Adverse Reactions: codeine Allergy (Verified 08/21/21 18:05) Home Medications: Amlodipine Besylate 5 mg [Norvasc 5 mg] 5 mg PO DAILY 08/11/21 [History] Atorvastatin Calcium [Lipitor] 10 mg PO DAILY 08/11/21 [History] Baclofen 40 mg PO QID 08/11/21 [History] Nicotine Polacrilex [Nicotine Lozenge] 4 mg BC UD 08/11/21 [History] Omeprazole 20 mg PO HS 08/11/21 [History] Warfarin Sodium 1 mg [Coumadin 1 MG] 3.5 mg PO DAILY 08/11/21 [History] Ibuprofen 200 mg [Motrin 200 mg] 200 mg PO Q6H PRN 08/12/21 [History] L.acidoph,Paracasei, B.lactis [Probiotic] 1 each PO HS 08/12/21 [History] Warfarin Sodium 5 mg [Coumadin 5 MG] 4 mg PO DAILY 08/12/21 [History] Hx Tetanus, Diphtheria Vaccination/Date Given: No Hx Influenza Vaccination/Date Given: Yes Hx Pneumococcal Vaccination/Date Given: Yes Immunizations Up to Date: Yes Travel Risk - International Travel Have you traveled outside of the country in past 3 weeks: No - Coronavirus Screening Are you exhibiting any of the following symptoms?: Yes Symptoms: Shortness of Breath Close contact with a COVID-19 positive Pt in past 14-21 Days: No - Vaccine Status Have you recieved a Covid-19 vaccination: Yes Mass Spectrometry Specialist: Moderna - Vaccination Dates Date of 2cond Vaccination (if applicable): 01/2021 - Review of Systems All Other Systems: Unable due to condition (Pt has minimal symptoms due to quadriplegia) - Past Medical History Pertinent Past Medical History: Yes Cardiac History: High Cholesterol, Hypertension Musculoskeletal History: Fractures GI Medical History: GERD - Past Surgical History Past Surgical History: Yes Neuro Surgical History: No Pertinent History Cardiac: No Pertinent History Respiratory: No Pertinent History Gastrointestinal: Bowel Surgery Genitourinary: Kidney Surgery, Other Musculoskeletal: Orthopedic Surgery Other Surgical History: parapalegic, pt has urostemy and colostomy - Social History Smoking Status: Current some day smoker How long have you smoked: 2 yrs Exposure to second hand smoke: Yes Drug Use: none Patient Lives Alone: No Significant Family History: no pertinent family hx - Nursing Vital Signs Nursing Vital Signs: Initial Vital Signs Temperature 97.8 F 08/21/21 17:57 Pulse Rate 65 08/21/21 17:57 Respiratory Rate 16 08/21/21 17:57 Blood Pressure 172/91 08/21/21 17:57 O2 Sat by Pulse Oximetry 98 08/21/21 17:57 Pain Scale Pain Intensity 0 Hypertensive - Physical Exam General Appearance: no apparent distress Eye Exam: PERRL/EOMI, eyes nml inspection Ears, Nose, Throat Exam: hearing grossly normal, normal ENT inspection, normal pharynx Neck Exam: normal inspection Respiratory Exam: diminished breath sounds (Decreased BS B/Poor effort) Cardiovascular/Chest Exam: normal heart sounds, regular rate/rhythm, No murmur Abdominal/Gastrointestinal Exam: soft Neurologic Exam: alert, oriented x 3, cooperative, motor deficits (Chronic), sensory deficit (Chronic) Skin Exam: normal color, warm, dry Lymphatic Exam: No adenopathy SpO2 Interpretation: normal SpO2: 95 O2 Delivery: Nasal Cannula - Course Nursing assessment & vital signs reviewed: Yes EKG Interpreted by Me: RATE (NSR/R65/Normal Qt-Qtc/No acute St-Twave changes) - Radiology Exams Chest X-ray Interpretation: Discussed w/ radiologist (CXR-New CHF w possible superimposed pneumonia) - CT Exams Chest CT Interpretation: Discussed w/radiologist (CT chest-No PE/new CHF/Superimposed pneumonia) Ordered Tests: Active Orders 24 hr Category Date Time Status Consistent Carbohydrate Diet 2000 Calorie Diet 08/22/21 Breakfast Active CHEST 1 VIEW (PORTABLE) Stat Exams 08/21/21 18:12 Taken CHEST WITH CONTRAST [CT] Stat Exams 08/21/21 19:49 Taken BLOOD CULTURE Stat Lab 08/21/21 21:45 Received CBC AM.LAB Lab 08/22/21 04:00 Ordered CBC W DIFF Stat Lab 08/21/21 18:45 Completed CMP AM.LAB Lab 08/24/21 04:00 Ordered CMP Stat Lab 08/21/21 18:11 Completed NT PRO BNP AM.LAB Lab 08/22/21 04:00 Ordered NT PRO BNP Stat Lab 08/21/21 18:11 Completed PROTIME WITH INR Stat Lab 08/21/21 18:45 Completed PTT Stat Lab 08/21/21 18:45 Completed TROPONIN Q3H Lab 08/21/21 18:15 Completed TROPONIN Q3H Lab 08/21/21 21:45 Completed TROPONIN Q3H Lab 08/22/21 00:25 Received TROPONIN Q3H Lab 08/22/21 03:15 Ordered TROPONIN Q3H Lab 08/22/21 06:15 Ordered Medication Summary Generic Name Dose Route Start Last Admin Trade Name Freq PRN Reason Stop Dose Admin Furosemide 40 mg 08/22/21 10:00 Lasix 40 Mg/4 Ml IV 09/21/21 09:59 BID DIURETIC MAGUI Piperacillin Sod/Tazobactam 100 mls @ 200 mls/hr 08/22/21 06:00 Sod 3.375 gm/ Sodium Chloride IV 08/25/21 05:59 Q6HT MAGUI Lisinopril 10 mg 08/22/21 10:00 Zestril 10 Mg PO 09/21/21 09:59 DAILY MAGUI Discontinued Medications Generic Name Dose Route Start Last Admin Trade Name Freq PRN Reason Stop Dose Admin Furosemide 40 mg 08/21/21 21:26 08/21/21 21:31 Lasix 40 Mg/4 Ml IV 08/21/21 21:27 40 mg STAT ONE Administration Furosemide Confirm 08/21/21 21:30 Lasix 40 Mg/4 Ml Administered 08/21/21 21:31 Dose 40 mg .ROUTE .STK-MED ONE Piperacillin Sod/Tazobactam 100 mls @ 200 mls/hr 08/21/21 22:31 08/21/21 22:39 Sod 3.375 gm/ Sodium Chloride IV 08/21/21 23:00 200 mls/hr STAT ONE Administration Sodium Chloride Confirm 08/21/21 22:39 Sodium Chloride 100ml Mini-Bag Plus Administered 08/21/21 22:40 Dose 100 mls @ ud IV .STK-MED ONE Piperacillin Sod/Tazobactam Sod Confirm 08/21/21 22:39 Zosyn 3.375 Gm Vial Administered 08/21/21 22:40 Dose 3.375 gm IV .STK-MED ONE Lab/Rad Data: Laboratory Result Diagrams 08/21/21 18:45 08/21/21 18:11 Laboratory Results 08/21/21 08/21/21 08/21/21 Range/Units 22:45 21:45 18:45 WBC (4.0-10.5) K/mm3 RBC (4.1-5.6) M/mm3 Hgb (12.5-18.0) gm/dl Hct (42-50) % MCV (78-100) fl MCH (26-32) pg MCHC (32-36) g/dl RDW (11.5-14.0) % Plt Count (150-450) K/mm3 MPV (7.5-11.0) fl Gran % (36.0-66.0) % Eos # (Auto) (0-0.5) Absolute Lymphs (auto) (1.0-4.6) Absolute Monos (auto) (0.0-1.3) Lymphocytes % (24.0-44.0) % Monocytes % (0.0-12.0) % Eosinophils % (0.00-5.0) % Basophils % (0.0-0.4) % Absolute Granulocytes (1.4-6.9) Basophils # (0-0.4) PT 35.1 H (9.4-12.5) SECONDS INR 2.97 (0.8-3.0) APTT 42.8 H (25.1-36.5) SECONDS Sodium (137-145) mmol/L Potassium (3.5-5.1) mmol/L Chloride (98-107) mmol/L Carbon Dioxide (22-30) mmol/L Anion Gap (5-15) MEQ/L BUN (9-20) mg/dL Creatinine (0.66-1.25) mg/dL Estimated GFR ML/MIN Glucose (74-106) mg/dL Calcium (8.4-10.2) mg/dL Total Bilirubin (0.2-1.3) mg/dL AST (17-59) U/L ALT (0-50) U/L Alkaline Phosphatase (38-126) U/L Troponin I < 0.012 (0.000-0.034) ng/mL NT-Pro-B Natriuret Pep (0-900) pg/mL Serum Total Protein (6.3-8.2) g/dL Albumin (3.5-5.0) g/dL SARS-CoV-2 (PCR) NEGATIVE (NEGATIVE) Slides for Path Review 08/21/21 08/21/21 08/21/21 Range/Units 18:45 18:15 18:11 WBC 5.4 (4.0-10.5) K/mm3 RBC 3.14 L (4.1-5.6) M/mm3 Hgb 8.7 L (12.5-18.0) gm/dl Hct 28.0 L (42-50) % MCV 89.2 (78-100) fl MCH 27.7 (26-32) pg MCHC 31.1 L (32-36) g/dl RDW 17.1 H (11.5-14.0) % Plt Count 122 L (150-450) K/mm3 MPV 9.6 (7.5-11.0) fl Gran % 77.2 H (36.0-66.0) % Eos # (Auto) 0.26 (0-0.5) Absolute Lymphs (auto) 0.41 L (1.0-4.6) Absolute Monos (auto) 0.53 (0.0-1.3) Lymphocytes % 7.6 L (24.0-44.0) % Monocytes % 9.8 (0.0-12.0) % Eosinophils % 4.8 (0.00-5.0) % Basophils % 0.6 (0.0-0.4) % Absolute Granulocytes 4.17 (1.4-6.9) Basophils # 0.03 (0-0.4) PT (9.4-12.5) SECONDS INR (0.8-3.0) APTT (25.1-36.5) SECONDS Sodium 123 L (137-145) mmol/L Potassium 4.7 (3.5-5.1) mmol/L Chloride 91 L (98-107) mmol/L Carbon Dioxide 26 (22-30) mmol/L Anion Gap 10.5 (5-15) MEQ/L BUN 16 (9-20) mg/dL Creatinine 0.72 (0.66-1.25) mg/dL Estimated GFR > 60.0 ML/MIN Glucose 95 (74-106) mg/dL Calcium 8.6 (8.4-10.2) mg/dL Total Bilirubin 0.60 (0.2-1.3) mg/dL AST 32 (17-59) U/L ALT 17 (0-50) U/L Alkaline Phosphatase 118 (38-126) U/L Troponin I < 0.012 (0.000-0.034) ng/mL NT-Pro-B Natriuret Pep 857 (0-900) pg/mL Serum Total Protein 6.8 (6.3-8.2) g/dL Albumin 3.5 (3.5-5.0) g/dL SARS-CoV-2 (PCR) (NEGATIVE) Slides for Path Review YES - Progress Progress: improved Progress Note: 08/21/21 22:[address] Robert Sevilla sputum culture 40mg IV Lasix 08/22/21 00:10 Zosyn 3.375mg Iv x1 DNR per Pt Discussed with : Shalonda Counseled pt/family regarding: lab results, diagnosis, need for follow-up, rad results - Departure Departure Disposition: Observation Clinical Impression: Congestive cardiac failure, Pneumonia Condition: Stable Critical Care Time: No
[2021-08-21 18:48] LABS: Absolute Neutrophil Ct (ANC) 4.17 (1.4-6.9); BASOPHIL % 0.6 % (0.0-0.4); Basophil (Absolute #) 0.03 (0-0.4); Eosinophil % 4.8 % (0.00-5.0); Eosinophil (Absolute #) 0.26 (0-0.5); Hemoglobin 8.7 gm/dl (12.5-18.0); Lymphocyte (Absolute #) 0.41 (1.0-4.6); Lymphocytes % 7.6 % (24.0-44.0); Mean Cell Volume 89.2 fl (78-100); Mean Corpuscular Hemoglobin 27.7 pg (26-32); Mean Corpuscular Hgb Concent. 31.1 g/dl (32-36); Mean Platelet Volume 9.6 fl (7.5-11.0); Monocyte (Absolute #) 0.53 (0.0-1.3); Monocytes % 9.8 % (0.0-12.0); Neutrophil % 77.2 % (36.0-66.0); Platelet Count 122 K/mm3 (150-450); Red Blood Count 3.14 M/mm3 (4.1-5.6); Red Cell Distribution Width 17.1 % (11.5-14.0); White Blood Count 5.4 K/mm3 (4.0-10.5)
[2021-08-21 18:50] LABS: INR 2.97 (0.8-3.0); PROTIME 35.1 SECONDS (9.4-12.5)
[2021-08-21 18:52] LABS: PTT 42.8 SECONDS (25.1-36.5)
[2021-08-21 18:56] LABS: ALBUMIN 3.5 g/dL (3.5-5.0); ALKALINE PHOSPHATASE 118 U/L (38-126); ANION GAP 10.5 MEQ/L (5-15); BLOOD UREA NITROGEN 16 mg/dL (9-20); CHLORIDE 91 mmol/L (98-107); Calcium 8.6 mg/dL (8.4-10.2); Carbon Dioxide 26 mmol/L (22-30); Creatinine 1 0.72 mg/dL (0.66-1.25); EST GLOMERULAR FILTRATION RATE > 60.0 ML/MIN; Glucose 95 mg/dL (74-106); Potassium 4.7 mmol/L (3.5-5.1); SGOT/AST 32 U/L (17-59); SGPT/ALT 17 U/L (0-50); SODIUM 123 mmol/L (137-145); Total Protein 6.8 g/dL (6.3-8.2)
[2021-08-21 19:04] LABS: NT PRO BNP 857 pg/mL (0-900)
[2021-08-21] MEDS ORDERED: Lasix 40 MG/4 ML IV ONE (21:26)
[2021-08-21] MEDS ORDERED: Lasix 40 MG/4 ML ONE (21:30)
[2021-08-21] MEDS ORDERED: Zosyn 3.375 GM Vial 3.375 GM in Sodium Chloride 100ML MINI-BAG PLUS 100 ML IV ONE (22:31)
[2021-08-21] MEDS ORDERED: Zosyn 3.375 GM Vial IV ONE (22:39)
[2021-08-21] MEDS ORDERED: Sodium Chloride 100ML MINI-BAG PLUS 100 ML IV ONE (22:39)
[2021-08-21 23:24] LABS: Slide Review 1 YES
[2021-08-22 05:40] LABS: Hematocrit 28.8 % (42-50); Hemoglobin 8.9 gm/dl (12.5-18.0); Mean Cell Volume 88.9 fl (78-100); Mean Corpuscular Hemoglobin 27.5 pg (26-32); Mean Corpuscular Hgb Concent. 30.9 g/dl (32-36); Mean Platelet Volume 9.3 fl (7.5-11.0); Platelet Count 129 K/mm3 (150-450); Red Blood Count 3.24 M/mm3 (4.1-5.6); Red Cell Distribution Width 17.3 % (11.5-14.0); White Blood Count 4.8 K/mm3 (4.0-10.5)
[2021-08-22] MEDS ORDERED: Zosyn 3.375 GM Vial IV ONE (06:30)
[2021-08-22] MEDS ORDERED: Sodium Chloride 100ML MINI-BAG PLUS 100 ML IV ONE (06:31)
[2021-08-22] MEDS: Zosyn 3.375 GM Vial 3.375 GM in Sodium Chloride 100ML MINI-BAG PLUS 100 ML IV SCH ×3 (06:35→17:17)
--- NOTE | 2021-08-22 08:56 | XRAY ---
Indication: Cough and short of breath. Comparison: August 11, 2021. Portable chest demonstrates new cardiomegaly, central vascular congestion, interstitial edema, and moderate bibasilar effusions right greater than left favoring cardiac decompensation/CHF. Superimposed pneumonia not completely excluded. Stable right PICC line.
--- NOTE | 2021-08-22 09:02 | XRAY ---
Indication: Short of breath. History Covid 19. Multiple contiguous axial images obtained through the chest using 80 cc Isovue 370 contrast and PE protocol. Comparison: August 12, 2021. There is good opacification of the pulmonary arteries to include the lobar and segmental branches. No pulmonary embolus. Heart is now enlarged again with right arm PICC line. Aorta normal in course and caliber again with minimal calcifications. Stable multiple small nonspecific mediastinal lymph nodes and mediastinal/hilar calcified nodes. Stable small hiatal hernia. Lungs demonstrates new moderate bilateral effusions with new bilateral lower lobe compressive atelectasis. Visualized aerated right lung again demonstrates patchy groundglass airspace disease. Impression: 1. Negative pulmonary embolus. 2. New cardiomegaly with moderate bilateral pleural effusions and bilateral compressive atelectasis. Rule out cardiac decompensation versus fluid overload. Again suspect superimposed right lung Covid 19 pneumonia. 3. Again incidental multiple mediastinal calcified and noncalcified nodules.
[2021-08-22] MEDS: Lasix 40 MG/4 ML IV SCH ×2 (10:37→17:17)
[2021-08-22] MEDS: Zestril 10 MG PO SCH (10:37)
[2021-08-22] MEDS ORDERED: MOTRIN 200 MG PO PRN (12:06)
[2021-08-22] MEDS ORDERED: NICOTINE POLACRILEX 4 MG BC SCH (12:15)
[2021-08-22] MEDS ORDERED: MEDICATION INTERVENTION MC SCH (12:30)
[2021-08-22 12:32] LABS: BLOOD UREA NITROGEN 14 mg/dL (9-20); CHLORIDE 86 mmol/L (98-107); Calcium 8.8 mg/dL (8.4-10.2); Carbon Dioxide 34 mmol/L (22-30); Creatinine 1 0.77 mg/dL (0.66-1.25); EST GLOMERULAR FILTRATION RATE > 60.0 ML/MIN; Glucose 97 mg/dL (74-106); SODIUM 126 mmol/L (137-145)
--- NOTE | 2021-08-22 12:55 | XRAY ---
Indication: Follow-up CHF. Comparison: One day earlier. Portable chest again demonstrates cardiomegaly and central vascular congestion with worsening moderate bibasilar pleural effusions/atelectasis. Stable right PICC line. No new cardiopulmonary abnormalities.
[2021-08-22] MEDS ORDERED: BACLOFEN 40 MG PO SCH (13:00)
[2021-08-22] MEDS: Protonix 40MG Tablet PO SCH (13:02)
[2021-08-22] MEDS: Zocor 10MG PO SCH (13:03)
[2021-08-22] MEDS: LIORESAL 10 MG PO SCH ×3 (13:03→22:08)
[2021-08-22] MEDS: NORVASC 5 MG PO SCH (13:03)
[2021-08-22] MEDS ORDERED: Coumadin 3 MG PO SCH (18:00)
[2021-08-22] MEDS ORDERED: Coumadin 1 MG PO SCH (18:00)
[2021-08-22] MEDS ORDERED: NON-FORMULARY ITEM (L.Acidoph,Paracasei, B.Lactis [Probiotic] 1 EACH) PO SCH (22:00)
[2021-08-22] MEDS ORDERED: NON-FORMULARY ITEM (Omeprazole [Omeprazole] 20 MG) PO SCH (22:00)
[2021-08-22] MEDS: Acidophilus TABLET PO SCH (22:09)
[2021-08-23] MEDS: Zosyn 3.375 GM Vial 3.375 GM in Sodium Chloride 100ML MINI-BAG PLUS 100 ML IV SCH ×2 (00:14→05:59)
[2021-08-23 05:37] LABS: INR 3.23 (0.8-3.0); PROTIME 38.1 SECONDS (9.4-12.5)
--- NOTE | 2021-08-23 08:34 | XRAY ---
Exam: AP upright portable chest film from 08/23/2021. Comparison: AP upright portable chest film from 08/22/2021 and 08/21/2021. Indication: Pneumonia. Findings: The transverse heart size is again slightly enlarged. The patient is rotated mildly toward the left. Mild bilateral perihilar and bibasilar vascular prominence/congestion is again seen. I believe there is mild improvement at the central left lung base in this regard. Also, both hemidiaphragms and lateral costophrenic angles remain obscured suggestive of at least mild bibasilar pleural effusions, right greater than left. Pleural fluid on the right may be slightly decreased as compared to yesterday's film. The upper lung zones appear relatively clear. Right-sided PICC line is seen with the tip pointing inferiorly within the distal SVC representing no change. Impression: 1. Radiographic findings are most consistent with slowly resolving CHF. Underlying atelectasis and/or infiltrate at the lung bases cannot be excluded.
[2021-08-23] MEDS: Lasix 40 MG/4 ML IV SCH ×2 (09:27→16:35)
[2021-08-23] MEDS: Zocor 10MG PO SCH (09:28)
[2021-08-23] MEDS: NORVASC 5 MG PO SCH (09:28)
[2021-08-23] MEDS: Miralax Powder 17GM PACKET PO SCH (09:28)
[2021-08-23] MEDS: Zestril 10 MG PO SCH (09:28)
[2021-08-23] MEDS: Protonix 40MG Tablet PO SCH (09:28)
[2021-08-23] MEDS: LIORESAL 10 MG PO SCH ×4 (09:36→22:17)
[2021-08-23] MEDS ORDERED: NON-FORMULARY ITEM (Atorvastatin Calcium [Lipitor] 10 MG) PO SCH (10:00)
[2021-08-23] MEDS ORDERED: Coumadin 1 MG PO SCH (10:00)
[2021-08-23] MEDS ORDERED: Coumadin 5 MG PO SCH (10:00)
[2021-08-23] MEDS ORDERED: Lasix 40 MG/4 ML IV ONE (10:15)
--- NOTE | 2021-08-23 10:30 | PCM.HP ---
History of Present Illness - Chief Complaint Chief Complaint: CHF/Pneumonia Date: 08/22/21 History of Present Illness: is a 75 year old male. Presented to ER with increased sob over the past 2 days, pt. recently discharged for hyponatremia. Pt. does intermittently use home oxygen and has a home health nurse that visits and noted the low oxygen saturation. - Review of Systems Constitutional: No Fever, No Chills Eyes: No Symptoms Ears, Nose, & Throat: No Symptoms Respiratory: Orthopnea, Short Of Breath Cardiac: No Chest Pain, No Edema, No Syncope Abdominal/Gastrointestinal: No Abdominal Pain, No Nausea, No Vomiting, No Diarrhea Genitourinary Symptoms: No Dysuria Musculoskeletal: No Back Pain, No Neck Pain Skin: No Rash Neurological: No Dizziness, No Focal Weakness, No Sensory Changes Psychological: No Symptoms Endocrine: No Symptoms Hematologic/Lymphatic: No Symptoms Immunological/Allergic: No Symptoms Medications & Allergies Home Medications: Home Medication List Amlodipine Besylate 5 mg [Norvasc 5 mg] 5 mg PO DAILY 08/11/21 [History Confirmed 08/21/21] Atorvastatin Calcium [Lipitor] 10 mg PO DAILY 08/11/21 [History Confirmed 08/21/21] Baclofen 40 mg PO QID 08/11/21 [History Confirmed 08/21/21] Nicotine Polacrilex [Nicotine Lozenge] 4 mg BC UD 08/11/21 [History Confirmed 08/21/21] Omeprazole 20 mg PO HS 08/11/21 [History Confirmed 08/21/21] Warfarin Sodium 1 mg [Coumadin 1 MG] 3.5 mg PO DAILY 08/11/21 [History Con firmed 08/21/21] Ibuprofen 200 mg [Motrin 200 mg] 200 mg PO Q6H PRN 08/12/21 [History Confirmed 08/21/21] L.acidoph,Paracasei, B.lactis [Probiotic] 1 each PO HS 08/12/21 [History Confirmed 08/21/21] Warfarin Sodium 5 mg [Coumadin 5 MG] 4 mg PO DAILY 08/12/21 [History Confirmed 08/21/21] Allergies/Adverse Reactions: Allergies Allergy/AdvReac Type Severity Reaction Status Date / Time codeine Allergy Verified 08/21/21 18:05 - Past Medical History Past Medical History: Yes Neurological History: Other ENT History: No Pertinent History Cardiac History: High Cholesterol, Hypertension Respiratory History: No Pertinent History Endocrine Medical History: No Pertinent History Musculoskelatal History: Fractures GI Medical History: GERD Comment: urostomy, colostomy, UTIs, hyponatremia, recent diagnosis of CHF, parapalegic - Past Surgical History Past Surgical History: Yes Neuro Surgical History: No Pertinent History Cardiac History: No Pertinent History Respiratory Surgery: No Pertinent History GI Surgical History: Bowel Surgery Genitourinary Surgical Hx: Kidney Surgery, Other Musculskeletal Surgical Hx: Orthopedic Surgery Other Surgical History: parapalegic, pt has urostemy and colostomy - Social History Smoking Status: Current some day smoker How long have you smoked: 2 yrs Exposure to second hand smoke: Yes Alcohol: None Drug Use: none Significant Family History: no pertinent family hx - Physical Exam Vital Signs: Vital Signs - 24 hr Temp Pulse Resp BP Pulse Ox 08/23/21 08:06 93 L 08/23/21 07:23 97.7 F 86 18 124/58 99 08/23/21 04:00 99.6 F 75 18 142/69 96 08/23/21 00:00 98.7 F 70 17 144/65 96 08/22/21 20:00 97.1 F 58 L 18 117/55 95 08/22/21 18:47 95 08/22/21 16:00 97.1 F 50 L 12 139/69 96 08/22/21 12:00 97.5 F 56 L 14 127/66 98 General Appearance: no apparent distress, alert Neurologic Exam: alert, cooperative, normal mood/affect Eye Exam: eyes nml inspection Ears, Nose, Throat Exam: normal ENT inspection, pharynx normal, moist mucous membranes Neck Exam: normal inspection, non-tender, supple, No meningismus, No mass Respiratory Exam: crackles/rales, No chest tenderness, No respiratory distress Cardiovascular Exam: regular rate/rhythm, normal heart sounds, normal peripheral pulses Gastrointestinal/Abdomen Exam: soft, normal bowel sounds, No tenderness, No distention, No guarding Rectal Exam: deferred Back Exam: normal inspection Extremity Exam: other (prior fracture and internal fixation of left tibia) Skin Exam: normal color, warm, dry Wound Assessment: Skin/Wound Assessment Wound/Incision Assessment Start: 08/22/21 01:14 Text: Status: Active Freq: Q6H Protocol: Document 08/23/21 08:00 AW (Rec: 08/23/21 08:12 AW [id number]) Wound Photo Photo Taken No Results - Labs Lab/Micro Results: Lab Results-Last 24 Hours 08/22/21 08/23/21 Range/Units 12:10 04:57 PT 38.1 H (9.4-12.5) SECONDS INR 3.23 H (0.8-3.0) Sodium 126 L (137-145) mmol/L Potassium 4.0 (3.5-5.1) mmol/L Chloride 86 L (98-107) mmol/L Carbon Dioxide 34 H (22-30) mmol/L Anion Gap 10.0 (5-15) MEQ/L BUN 14 (9-20) mg/dL Creatinine 0.77 (0.66-1.25) mg/dL Estimated GFR > 60.0 ML/MIN Glucose 97 (74-106) mg/dL Calcium 8.8 (8.4-10.2) mg/dL Microbiology 08/21/21 21:45 Blood Culture - Preliminary Blood NO GROWTH TO DATE - Radiology Impressions Radiology Exams & Impressions: Radiology Procedures Category Date Time Status CHEST 1 VIEW (PORTABLE) Routine Exams 08/22/21 12:05 Completed CHEST 1 VIEW (PORTABLE) Routine Exams 08/23/21 05:43 Completed CHEST 1 VIEW (PORTABLE) Stat Exams 08/21/21 18:12 Completed CHEST WITH CONTRAST [CT] Stat Exams 08/21/21 19:49 Completed Assessment/Plan (1) Congestive cardiac failure Current Visit: Yes Status: Acute Assessment & Plan: Pt. notes breathing better has diuresed 3 liters since admission with iv lasix in ER Code(s): I50.9 - HEART FAILURE, UNSPECIFIED (2) Pneumonia Current Visit: Yes Status: Acute Assessment & Plan: IV abx for likely causative organisms. Code(s): J18.9 - PNEUMONIA, UNSPECIFIED ORGANISM
[2021-08-23] MEDS: ROCEPHIN 1 Gm-D5w 50 ml Bag** 1 G/50 ML IVPB IV SCH (11:06)
[2021-08-23] MEDS: Zithromax 500 MG/ 250 ML NaCl Premix 500 MG/250 ML IVPB IV SCH (11:06)
[2021-08-23] MEDS ORDERED: BENADRYL 25 MG CAPSULE PO PRN (16:14)
[2021-08-23] MEDS: Acidophilus TABLET PO SCH (22:18)
[2021-08-24 05:52] LABS: INR 2.86 (0.8-3.0); PROTIME 33.7 SECONDS (9.4-12.5)
[2021-08-24 06:04] LABS: ALBUMIN 3.5 g/dL (3.5-5.0); ALKALINE PHOSPHATASE 139 U/L (38-126); ANION GAP 7.1 MEQ/L (5-15); BLOOD UREA NITROGEN 20 mg/dL (9-20); CHLORIDE 93 mmol/L (98-107); Calcium 8.9 mg/dL (8.4-10.2); Carbon Dioxide 37 mmol/L (22-30); Creatinine 1 0.82 mg/dL (0.66-1.25); EST GLOMERULAR FILTRATION RATE > 60.0 ML/MIN; Glucose 95 mg/dL (74-106); Potassium 4.2 mmol/L (3.5-5.1); SGOT/AST 24 U/L (17-59); SGPT/ALT 15 U/L (0-50); SODIUM 133 mmol/L (137-145); Total Protein 6.8 g/dL (6.3-8.2)
[2021-08-24 09:04] LABS: A-aADO2 2; ABG HEMOGLOBIN 9.6; ARTERIAL BLD GAS O2 SATURATION 99.2 % (95-100); ARTERIAL BLOOD GAS BASE EXCESS 9.6 (-2.0-2.0); ARTERIAL BLOOD GAS FIO2 32 %; ARTERIAL BLOOD GAS PO2 137 mmHg (75-100); ARTERIAL BLOOD GAS pH 7.34 (7.35-7.45); CARBOXYHEMOGLOBIN 1.6 % THgb (0.0-6.9); HCO3- 38.3 (22-28); HGB O2 SAT 96.7 g/dF (94-100); Methhemoglobin 0.8 % (1.4-1.5)
[2021-08-24 09:05] LABS: ARTERIAL BLOOD GAS PCO2 71 mmHg (35-45)
[2021-08-24] MEDS: Miralax Powder 17GM PACKET PO SCH (10:03)
[2021-08-24] MEDS: Zestril 10 MG PO SCH (10:03)
[2021-08-24] MEDS: Lasix 40 MG/4 ML IV SCH ×2 (10:03→17:25)
[2021-08-24] MEDS: Zocor 10MG PO SCH (10:03)
[2021-08-24] MEDS: ROCEPHIN 1 Gm-D5w 50 ml Bag** 1 G/50 ML IVPB IV SCH (10:03)
[2021-08-24] MEDS: Protonix 40MG Tablet PO SCH (10:03)
[2021-08-24] MEDS: NORVASC 5 MG PO SCH (10:03)
[2021-08-24] MEDS: Zithromax 500 MG/ 250 ML NaCl Premix 500 MG/250 ML IVPB IV SCH (10:57)
[2021-08-24] MEDS: LIORESAL 10 MG PO SCH ×4 (10:59→21:52)
[2021-08-24 14:52] LABS: A-aADO2 16; ABG HEMOGLOBIN 9.3; ABG POTASSIUM 4.3 (3.5-5.1); ARTERIAL BLD GAS O2 SATURATION 99.3 % (95-100); ARTERIAL BLOOD GAS BASE EXCESS 9.7 (-2.0-2.0); ARTERIAL BLOOD GAS FIO2 28 %; ARTERIAL BLOOD GAS PO2 100 mmHg (75-100); ARTERIAL BLOOD GAS pH 7.36 (7.35-7.45); CARBOXYHEMOGLOBIN 1.8 % THgb (0.0-6.9); HCO3- 37.9 (22-28); HGB O2 SAT 96.4 g/dF (94-100); Methhemoglobin 1.1 % (1.4-1.5)
[2021-08-24 14:53] LABS: ARTERIAL BLOOD GAS PCO2 67 mmHg (35-45)
[2021-08-24 14:54] LABS: ABG SITE RIGHT BRACHIAL
--- NOTE | 2021-08-24 16:36 | XRAY ---
Exam: AP semiupright portable chest film from 08/24/2021. Comparison: AP upright portable chest film from 08/23/2021 and 08/22/2021. Indication: Follow-up CHF/pneumonia; hypoxia; elevated CO2. Findings: The heart size is at the upper limits of normal. Atherosclerotic vascular calcification of the aortic arch is seen. A few small left perihilar granulomatous calcifications are seen. I again see mild right perihilar and bibasilar vascular congestion with mild bibasilar pleural effusions. Both hemidiaphragms remain obscured. Underlying atelectasis and/or infiltrate at the lung bases cannot be excluded. The upper half of the right lung and the upper two thirds of the left lung remain clear. Right-sided PICC line is again seen with the tip just proximal to the cavoatrial junction pointing inferiorly. Mild degenerative changes are seen within the thoracic spine. The patient is mildly rotated toward the left. Impression: 1. The findings are again consistent with CHF, as discussed above. Underlying atelectasis and/or infiltrate at the lung bases cannot be excluded.
[2021-08-24] MEDS: PATIENT OWN MEDICATION PO SCH (17:31)
[2021-08-24] MEDS ORDERED: Coumadin 3 MG PO SCH (18:00)
[2021-08-24] MEDS ORDERED: Coumadin 1 MG PO SCH (18:00)
[2021-08-24] MEDS: Acidophilus TABLET PO SCH (21:52)
[2021-08-25 04:23] LABS: A-aADO2 17; ABG HEMOGLOBIN 9.3; ABG POTASSIUM 4.3 (3.5-5.1); ABG SITE LEFT RADIAL; ARTERIAL BLD GAS O2 SATURATION 99.3 % (95-100); ARTERIAL BLOOD GAS BASE EXCESS 12.4 (-2.0-2.0); ARTERIAL BLOOD GAS FIO2 28 %; ARTERIAL BLOOD GAS PCO2 63 mmHg (35-45); ARTERIAL BLOOD GAS PO2 104 mmHg (75-100); ARTERIAL BLOOD GAS pH 7.41 (7.35-7.45); CARBOXYHEMOGLOBIN 3.4 % THgb (0.0-6.9); HCO3- 39.9 (22-28); HGB O2 SAT 95.2 g/dF (94-100); Methhemoglobin 0.7 % (1.4-1.5)
[2021-08-25 04:35] LABS: Absolute Neutrophil Ct (ANC) 4.83 (1.4-6.9); BASOPHIL % 0.5 % (0.0-0.4); Basophil (Absolute #) 0.03 (0-0.4); Eosinophil (Absolute #) 0.32 (0-0.5); Hematocrit 29.2 % (42-50); Hemoglobin 8.7 gm/dl (12.5-18.0); Lymphocyte (Absolute #) 0.55 (1.0-4.6); Lymphocytes % 8.6 % (24.0-44.0); Mean Cell Volume 92.4 fl (78-100); Mean Corpuscular Hemoglobin 27.5 pg (26-32); Mean Corpuscular Hgb Concent. 29.8 g/dl (32-36); Mean Platelet Volume 9.5 fl (7.5-11.0); Monocyte (Absolute #) 0.65 (0.0-1.3); Monocytes % 10.2 % (0.0-12.0); Neutrophil % 75.7 % (36.0-66.0); Platelet Count 177 K/mm3 (150-450); Red Blood Count 3.16 M/mm3 (4.1-5.6); Red Cell Distribution Width 17.7 % (11.5-14.0); White Blood Count 6.4 K/mm3 (4.0-10.5)
[2021-08-25 04:55] LABS: INR 2.19 (0.8-3.0); PROTIME 25.9 SECONDS (9.4-12.5)
[2021-08-25 05:00] LABS: ALBUMIN 3.5 g/dL (3.5-5.0); ALKALINE PHOSPHATASE 132 U/L (38-126); ANION GAP 6.9 MEQ/L (5-15); BLOOD UREA NITROGEN 24 mg/dL (9-20); CHLORIDE 96 mmol/L (98-107); Calcium 9.2 mg/dL (8.4-10.2); Carbon Dioxide 38 mmol/L (22-30); Creatinine 1 0.73 mg/dL (0.66-1.25); EST GLOMERULAR FILTRATION RATE > 60.0 ML/MIN; Glucose 94 mg/dL (74-106); Potassium 4.4 mmol/L (3.5-5.1); SGOT/AST 36 U/L (17-59); SGPT/ALT 15 U/L (0-50); SODIUM 136 mmol/L (137-145); Total Protein 6.7 g/dL (6.3-8.2)
[2021-08-25 08:08] LABS: Slide Review 1 YES
[2021-08-25] MEDS ORDERED: Lasix 40 MG/4 ML IV ONE (08:30)
[2021-08-25] MEDS: Miralax Powder 17GM PACKET PO SCH (09:35)
[2021-08-25] MEDS: NORVASC 5 MG PO SCH (09:35)
[2021-08-25] MEDS: Lasix 40 MG/4 ML IV SCH (09:35)
[2021-08-25] MEDS: LIORESAL 10 MG PO SCH (09:35)
[2021-08-25] MEDS: Protonix 40MG Tablet PO SCH (09:36)
[2021-08-25] MEDS: ROCEPHIN 1 Gm-D5w 50 ml Bag** 1 G/50 ML IVPB IV SCH (09:36)
[2021-08-25] MEDS: Zestril 10 MG PO SCH (09:36)
[2021-08-25] MEDS: Zithromax 500 MG/ 250 ML NaCl Premix 500 MG/250 ML IVPB IV SCH (09:36)
[2021-08-25] MEDS: Zocor 10MG PO SCH (09:36)
[2021-08-25] MEDS: PATIENT OWN MEDICATION PO SCH (09:51)
[2021-08-25 11:25] VITALS: BP 130/88; PULSE 70; O2SAT 94
[2021-08-26] MEDS ORDERED: Coumadin 1 MG PO SCH (18:00)
[2021-08-26] MEDS ORDERED: Coumadin 3 MG PO SCH (18:00)
--- NOTE | 2021-08-30 17:24 | PCM.DS ---
Discharge Summary Date of Admission: 08/23/21 10:30 Date of Discharge: 08/25/2021 Admitting Physician: MATT GARCIA DO Primary Care Provider: MARYA AYALA Allergies Allergies codeine Allergy (Verified 08/21/21 18:05) Hospital Summary - Hospital Course Hospital Course: Pt. was admitted with CHF and possible underlying pneumonia, he was given iv diu retics which he responded to well and sob improved markedly, pt. was found to have hypercarbia for which we decreased oxygen use with improved mentation and CO2 level on blood gases. Discussed findings and treatment plan with , she voiced understanding and request the patient to be sent home with her. - Vitals & Intake/Output Vital Signs: Vital Signs Temperature 97.1 F 08/25/21 08:00 Pulse Rate 70 08/25/21 08:00 Respiratory Rate 19 08/25/21 08:00 Blood Pressure 130/88 08/25/21 08:00 O2 Sat by Pulse Oximetry 94 L 08/25/21 08:00 - Lab Result Diagrams: 08/25/21 04:22 08/25/21 04:22 Micro Results-Entire Visit: Microbiology 08/21/21 21:45 Blood Culture Gram Stain - Final Blood Not Reportable Blood Culture - Final NO GROWTH - Procedures and Test Procedures and Tests throughout Hospitalization: Therapy Orders & Screens 08/22/21 00:03 Oxygen NASAL CANNULA 2 lpm Comment: Diagnosis: CHF 08/22/21 01:14 RT Screen per Nursing Assess ONCE Comment: Protocol Order Physician Instructions: Greater than 3 points order RT Admission Screen Reason For Exam: Triggered on Admission Diagnosis: CHF/Pneumonia Diagnosis: CHF/Pneumonia Pneumonia: Yes Home O2: Yes Asthma: No CHF: Yes Home CPAP/BIPAP: No Home Nebs/MDI: No Total Points: 11 08/22/21 01:56 Respiratory Therapy Assessment DAILY Comment: Diagnosis: CHF/Pneumonia 08/24/21 08:48 Respiratory Therapy Consult ROUTINE Comment: Reason For Exam: Diagnosis: CHF/Pneumonia 08/24/21 08:57 RT Miscellaneous Order ROUTINE Comment: ORDER FOR HOME O2 IS ONLY AT HS Physician Instructions: Reason For Exam: WEAN OFF O2 TOLERATED. Diagnosis: CHF/Pneumonia Discharge Exam General Appearance: no apparent distress (Pt.) Neurologic Exam: alert, cooperative Eye Exam: PERRL, EOMI, eyes nml inspection Ears, Nose, Throat Exam: normal ENT inspection, pharynx normal, moist mucous membranes Neck Exam: normal inspection, non-tender, supple, full range of motion Respiratory Exam: normal breath sounds, lungs clear, No chest tenderness, No respiratory distress Cardiovascular Exam: regular rate/rhythm, normal heart sounds Gastrointestinal/Abdomen Exam: soft, normal bowel sounds, No tenderness, No distention Male Genitalia Exam: deferred Rectal Exam: deferred Back Exam: normal inspection (Pt. feels nothing from nipples down and unable to move his legs) Extremity Exam: paralysis Wound Assessment: Skin/Wound Assessment Wound/Incision Assessment Start: 08/22/21 01:14 Text: Status: Active Freq: Q6H Protocol: Document 08/25/21 07:54 AW (Rec: 08/25/21 07:59 AW [id number]) Wound Photo Photo Taken No Final Diagnosis/Problem List - Final Discharge Diagnosis/Problem (1) Congestive cardiac failure Status: Acute Code(s): I50.9 - HEART FAILURE, UNSPECIFIED (2) Pneumonia Status: Acute Code(s): J18.9 - PNEUMONIA, UNSPECIFIED ORGANISM (3) Hypercarbia Status: Acute Code(s): R06.89 - OTHER ABNORMALITIES OF BREATHING - Discharge Discharge Date: 08/25/21 Disposition: Home Health @ [facility] Condition: Stable Prescriptions: New Amoxicillin/Potassium Clav [Augmentin 875-125 Tablet] 875 mg PO BID 10 Days #20 tablet Azithromycin 250 mg PO DAILY 5 Days tablet Potassium Chloride 10 Meq Tab* [Klor Con 10 MEQ] 20 meq PO DAILY #30 tab Furosemide 20 mg [Lasix 20 mg] 20 mg PO DAILY #30 tablet Continue Atorvastatin Calcium [Lipitor] 10 mg PO DAILY Warfarin Sodium 1 mg [Coumadin 1 MG] 3.5 mg PO DAILY Amlodipine Besylate 5 mg [Norvasc 5 mg] 5 mg PO DAILY Omeprazole 20 mg PO HS Baclofen 40 mg PO QID Nicotine Polacrilex [Nicotine Lozenge] 4 mg BC UD Warfarin Sodium 5 mg [Coumadin 5 MG] 4 mg PO DAILY L.acidoph,Paracasei, B.lactis [Probiotic] 1 each PO HS Ibuprofen 200 mg [Motrin 200 mg] 200 mg PO Q6H PRN PRN Reason: Pain Instructions: Heart Failure, Adult (DC) Follow up with: MARYA AYALA [Primary Care Provider] - 09/07/21 10:30 am Forms: Discharge Instructions
[2021-09-05 15:09] LABS: ABG SITE LEFT RADIAL
[2021-09-05 15:10] LABS: ALLEN TEST OK? yes
== END 2021-08-25 13:00 | disposition home health service (06) | DRG 291 ==
LOC: ED 17:41 → MED SURG 08-22 00:12 → OBSVTOIN 08-23 10:30
PROVIDERS: ADMIT Family Medicine; ATTEND Family Medicine
DX: I50.9 Heart failure, unspecified (principal); J18.9 Pneumonia, unspecified organism; G82.50 Quadriplegia, unspecified; E87.1 Hypo-osmolality and hyponatremia; Z79.899 Other long term (current) drug therapy; Z79.01 Long term (current) use of anticoagulants; I10 Essential (primary) hypertension; E78.00 Pure hypercholesterolemia, unspecified; Z99.81 Dependence on supplemental oxygen; Z20.822 Contact with and (suspected) exposure to COVID-19
CPT/HCPCS: 36415; 36600; 71045; 71260; 80048; 80053; 82375; 82803; 83880; 84484; 85025; 85027; 85610; 85730; 87040; 93268; 94760; 96374; 99285; G0378; U0003; J0456; J0696; J1940; A9270-GY